=== PATIENT | female | born 1990 | race Asian ===

== ENCOUNTER 2022-09-24 18:32 | Emergency (ER) | payer OTHER ==
[~2022-09-24] VITALS: Ht 154.9 cm; Wt 72.6 kg
[2022-09-24] MEDS ORDERED: LAC-HYDRIN FIV226 GM TOP (19:32)
[2022-09-24] MEDS ORDERED: PREDNISONE20 MG PO (19:33)
[2022-09-24 19:58] VITALS: BP 152/94
== END 2022-09-24 19:58 | disposition home or self-care (01) ==
LOC: FSED 18:47
DX: L29.9 Pruritus, unspecified (principal); L85.8 Other specified epidermal thickening
CPT/HCPCS: 99282